=== PATIENT | female | born 1980 | race Two or more races ===

== ENCOUNTER → 2017-12-17 | Emergency (ER) | payer OTHER ==
[~2017-12-17] VITALS: Ht 162.6 cm; Wt 59.0 kg
[~2017-12-17] MED LIST: LOVENOX40 MG/0.4 SQ
== END | disposition home or self-care (01) ==
LOC: ER 18:30
DX: O26.891 Other specified pregnancy related conditions, first trimester (principal); R55 Syncope and collapse; Z34.81 Encounter for supervision of other normal pregnancy, first trimester

== ENCOUNTER 2017-12-18 13:20 | Outpatient (CLI) | payer OTHER | END 2017-12-18 13:30 | disposition home or self-care (01) | LOC: MRI 13:20 | DX: R55 Syncope and collapse (principal); Z34.90 Encounter for supervision of normal pregnancy, unspecified, unspecified trimester | CPT/HCPCS: 70551 ==